=== PATIENT | female | born 1960 | race Two or more races ===

== ENCOUNTER 2023-12-01 15:26 | Emergency (ER) | payer OTHER ==
[~2023-12-01] VITALS: Ht 165.1 cm; Wt 80.3 kg
[~2023-12-01 15:26] MED LIST: LAMICTAL100 MG PO; LAMICTAL150 MG PO
[2023-12-01] MEDS ORDERED: PEPCID AC20 MG (15:41)
[2023-12-01] MEDS ORDERED: BUSPAR (15:41)
[2023-12-01] MEDS ORDERED: METOPROLOL SUCC25 MG (15:41)
[2023-12-01] MEDS ORDERED: HYDROCHLOROTH12.5 M2 (15:41)
[2023-12-01] MEDS ORDERED: HYOSCYAMINE SULFATE 0.125 MG TAB.SUBL SL ONE (16:15)
[2023-12-01] MEDS ORDERED: PANTOPRAZOLE SODIUM 40 MG/VIAL VIAL IV PUSH ONE (16:15)
[2023-12-01] MEDS ORDERED: 0.9 % SODIUM CHLORIDE 1,000 ML IV ONE (16:15)
[2023-12-01] MEDS ORDERED: HYOSCYAMINE SULFATE 0.125 MG TAB.SUBL ONE (16:30)
[2023-12-01 16:57] LABS: HEMATOCRIT 42.8 % (36.0-45.00); HEMOGLOBIN 14.8 g/dL (12.0-15.00); MEAN CELL VOLUME 86.6 fL (80.00-100.00); MEAN CORPUSCULAR HEMOGLOBIN 29.9 pg (27.00-32.0); MEAN CORPUSCULAR HGB CONC 34.6 g/dl (32.0-36.0); PLATELET COUNT 163 K/uL (150-450); RED BLOOD COUNT 4.95 M/uL (4.00-6.00); RED CELL DISTRIBUTION WIDTH 13.6 % (11.5-14.5)
[2023-12-01 17:30] LABS: ALBUMIN 3.5 gm/dL (3.4-5.0); BILIRUBIN TOTAL 0.66 mg/dL (0.3-1.2); CALCIUM 9.2 mg/dL (8.5-10.1); CREATININE SERUM 0.85 mg/dL (0.55-1.02); GFR 67.99; GLOBULINA 3.4 G/DL (2.4-3.5); POTASSIUM 3.19 mEq/L (3.5-5.1); TOTAL PROTEIN 6.9 gm/dL (6.4-8.2)
[2023-12-01 18:19] LABS: PH,URINE 5.5 (5.0-8.0); URINE APPEARANCE Clear; URINE BILIRRUBIN Negative (NEGATIVE); URINE BLOOD Moderate; URINE COLOR Yellow; URINE GLUCOSE Negative (NEGATIVE); URINE LEUKOCYTE Negative; URINE NITRATE Negative; URINE PROTEIN Trace (NEGATIVE); URINE UROBILINOGEN 0.2 E.U./dl
[2023-12-01 18:23] LABS: URINE BACTERIA 530.4 uL (0.0-1933); URINE EPITHELIAL CELLS 8.9 uL (0.0-38.8); URINE RBC 47.1 uL (0.0-20.8); URINE WBC 2.3 uL (0.0-23.2)
[2023-12-01 18:30] LABS: URINE CAST 0.15 uL (0.0-1.40); URINE KETONE 80 (NEGATIVE)
[2023-12-01] MEDS ORDERED: PIPERACILLIN/TAZOBACTAM SODIUM 3.375 GM VIAL IV ONE ×2 (19:00→19:26)
== END 2023-12-01 21:18 | disposition home or self-care (01) ==
LOC: ER 15:28
PROVIDERS: General Practice
DX: K52.89 Other specified noninfective gastroenteritis and colitis (principal); I10 Essential (primary) hypertension

== ENCOUNTER 2024-01-03 05:53 | Day surgery (SDC) | payer OTHER ==
[~2024-01-03 05:53] MED LIST changes: +BUSPAR; +HYDROCHLOROTH12.5 M2; +METOPROLOL SUCC25 MG; +PEPCID AC20 MG
[2024-01-03] MEDS ORDERED: CEFOXITIN SODIUM 2,000 MG VIAL IV ONE ×2 (07:48→10:15)
[2024-01-03] MEDS ORDERED: ENALAPRILAT DIHYDRATE 1.25 MG/ML VIAL IV ONE (10:12)
[2024-01-03] MEDS ORDERED: CEFOXITIN SODIUM 2,000 MG VIAL IV SCH (10:15)
[2024-01-03] MEDS ORDERED: SUGAMMADEX SODIUM 200 MG/2 ML VIAL IV ONE ×2 (10:19→10:45)
[2024-01-03] MEDS ORDERED: ZOFRAN8 MG PO (10:37)
[2024-01-03] MEDS ORDERED: PEPCID AC20 MG PO (10:37)
[2024-01-03] MEDS ORDERED: PERCOCET 5-3251 EACH PO (10:37)
[2024-01-03] MEDS ORDERED: DICY20TA PO (10:38)
[2024-01-03] MEDS ORDERED: MORPHINE SULFATE 4 MG/ML VIAL IV ONE ×2 (11:10→11:40)
== END 2024-01-03 12:45 | disposition home or self-care (01) ==
LOC: CIR.AMB 05:53
PROVIDERS: ATTEND Surgery
DX: K80.10 Calculus of gallbladder with chronic cholecystitis without obstruction (principal); I10 Essential (primary) hypertension